=== PATIENT | male | born 1965 | race Caucasian/White ===

== ENCOUNTER 2022-02-14 05:36 | Outpatient (CLI) | payer OTHER ==
[~2022-02-14] VITALS: Ht 180.3 cm; Wt 115.0 kg
[~2022-02-14 05:36] MED LIST: ASPI-808 PO; IBUP-2473 PO; OXYC1TAB11 PO; WARF10TA PO
[2022-02-14] MEDS ORDERED: LISI20TA26 PO (09:29)
[2022-02-14] MEDS ORDERED: HYDR12.56 PO (09:29)
== END 2022-02-14 09:48 | disposition home or self-care (01) ==
LOC: PREOP 05:36
PROVIDERS: ATTEND Surgery
DX: Z01.818 Encounter for other preprocedural examination (principal)

== ENCOUNTER 2022-02-22 11:55 | Day surgery (SDC) | payer OTHER ==
[~2022-02-22] VITALS: Ht 180.3 cm; Wt 115.0 kg
[~2022-02-22 11:55] MED LIST changes: +HYDR12.56 PO; +LISI20TA26 PO
[2022-02-22] MEDS ORDERED: LACTATED RINGERS 1,000 ML IV STA (12:04)
[2022-02-22 13:30] VITALS: BP 139/85
[2022-02-22] MEDS ORDERED: PROPOFOL INJECTION 50 ML IV ONE ×2 (14:35→14:53)
--- NOTE | 2022-02-22 14:38 | Progress Note-Pre Operative ---
Pre-Operative Progress Note H&P Reviewed The H&P was reviewed, patient examined and no changes noted. Date Seen by Provider: February 22, 2022 Time Seen by Provider: 14:37 Date H&P Reviewed: February 22, 2022 Time H&P Reviewed: 14:37 Pre-Operative Diagnosis: positive cologuaTODD Jansen DO February 22, 2022 14:38
[2022-02-22] MEDS ORDERED: MIDAZOLAM 5 MG/5 ML (VERSED) VIAL ONE (15:29)
[2022-02-22 15:45] VITALS: BP 122/70
[2022-02-22 15:48] VITALS: BP 122/70
[2022-02-22 16:13] VITALS: BP 130/73
--- NOTE | 2022-02-22 16:14 | Discharge Inst-Simple/Standard ---
Discharge Inst-Standard Patient Instructions/Follow Up Plan of Care/Instructions/FU: 2 weeks Michael Activity as Tolerated: Yes Discharge Diet: Regular Diet TODD MCARTHUR DO February 22, 2022 16:13
--- NOTE | 2022-02-22 16:15 | Progress Note-Post Operative ---
Post-Operative Progess Note Surgeon (s)/Chief Clerk (s) Surgeon TODD MCARTHUR DO Chief Clerk: na Pre-Operative Diagnosis positive cologuard Post-Operative Diagnosis colon polyps Procedure & Operative Findings Date of Procedure 02/22/22 Procedure Performed/Findings colonoscopy c hot bx polypectomy x 8 and snare polypectomy x 2 and jacobo inking of sigmoid polyp Anesthesia Type per mallet cutter Estimated Blood Loss Estimated blood loss (mL): none Specimens/Packing Specimens Removed colon polyps TODD MCARTHUR DO February 22, 2022 16:15
--- NOTE | 2022-02-22 23:07 | OPERATIVE REPORT ---
DATE OF SERVICE: 02/22/2022 DICTATION ENDS HERE Job ID: [id number] DocumentID: [id number] Dictated Date: 02/22/2022 16:25:53 Delinquent Tax Collector Assistant Date: 02/22/2022 23:06:37 Dictated By: TODD MCARTHUR DO
--- NOTE | 2022-02-23 02:19 | OPERATIVE REPORT ---
DATE OF SERVICE: 02/22/2022 PREOPERATIVE DIAGNOSIS: Positive Cologuard. POSTOPERATIVE DIAGNOSIS: Colon polyps. PROCEDURE: Colonoscopy with hot biopsy polypectomy x8, snare polypectomy x2 and Kitty inking of sigmoid colon polyp. SURGEON: Todd Rodriguez DO ANESTHESIA: Per MOVIE SHOT CAMERA OPERATOR. ESTIMATED BLOOD LOSS: None. COMPLICATIONS: None. INDICATIONS: The patient is a 56-year-old male with positive Cologuard. He understands risks and benefits of procedure and wishes to proceed. Consent was signed in the chart. DESCRIPTION OF PROCEDURE: The patient was taken to the endoscopy suite, placed in left lateral recumbent position. Timeout was performed. Digital rectal exam was performed. No palpable polyps, masses or ulcerations. Scope was inserted in the rectum and advanced all the way to cecum with minimal difficulty. Prep was adequate with irrigation and suction. Scope was then slowly retracted back, two polyps of the cecum, which hot biopsy polypectomies were performed. Scope was then continuously retracted back in the ascending colon. There were four polyps, which hot biopsy polypectomy was performed. Scope was then continuously retracted back to transverse colon. There are two polyps, which hot biopsy polypectomy was performed. A larger one was present, which snare polypectomy was performed and obtained for specimen. Scope was then continuously retracted back. No polyps, masses or ulcerations within the descending colon. In sigmoid colon, a large polyp that was pedunculated was present. Snare polypectomy was performed. A Isaac Net was used to obtain specimen. Just at the level of the polyp, 1 mL of Kitty ink was injected for reinspection later. Scope was then slowly retracted back. No polyps, masses or ulcerations within the remainder of the sigmoid and rectum. Once in the rectum, scope was inserted and retracted multiple times and scope was then slowly retracted back until completely removed. The patient tolerated the procedure well without any complications, taken to recovery room in stable condition. RECOMMENDATIONS: The patient will need repeat colonoscopy in 6 to 12 months for reevaluation. Await biopsy results. He will follow up in two weeks. Any issues before that he will be seen at that time. Job ID: [id number] DocumentID: [id number] Dictated Date: 02/22/2022 16:18:18 Shift Supervisor Film Processing Date: 02/22/2022 22:59:00 Dictated By: TODD RODRIGUEZ DO
--- NOTE | 2022-02-28 15:48 | Anesthesia-General Post-Op ---
MAC Significant Intra-Op Events Notes addendum 02-22-22 at 1600 Patient Condition Mental Status/LOC: Same as Preop Cardiovascular: Satisfactory Nausea/Vomiting: Absent Respiratory: Satisfactory Pain: Controlled Complications: Absent Post Op Complications Complications None Follow Up Care/Instructions Patient Instructions None needed. Anesthesiology Discharge Order Discharge Order Patient is doing well, no complaints, stable vital signs, no apparent adverse anesthesia problems. No complications reported per nursing. TIMMY LINDQUIST CRNA February 28, 2022 15:48
== END 2022-02-22 16:30 | disposition home or self-care (01) ==
LOC: ENDO 11:55
PROVIDERS: ATTEND Surgery
DX: D12.2 Benign neoplasm of ascending colon (principal); D12.3 Benign neoplasm of transverse colon; D12.5 Benign neoplasm of sigmoid colon; K63.5 Polyp of colon; E66.9 Obesity, unspecified; Z68.35 Body mass index [BMI] 35.0-35.9, adult; G47.33 Obstructive sleep apnea (adult) (pediatric)